=== PATIENT | female | born 1970 | race Hispanic/Latino ===

== ENCOUNTER 2018-07-02 12:53 | Day surgery (SDC) | payer BC, MEDICARE ==
[2016-04-10 12:03] VITALS: BMI 33.2
[2018-07-02 13:56] LABS: BASO # 0.06 K/mm3 (0.0-2.0); BASO % 0.6 % (0.0-3.0); EOS # 0.3 (0.0-0.7); EOS % 2.9 % (1.5-5.0); GRAN # 6.01 (1.4-6.5); GRAN % 55.5 % (50.0-68.0); HEMOGLOBIN 12.5 g/dL (12.0-16.0); LYMPH # 3.8 (1.2-3.4); LYMPH % 35.4 % (22.0-35.0); MEAN CELL VOLUME 57.8 fl (80.0-105.0); MEAN CORPUSCULAR HGB CONC 32.9 g/dl (31.0-37.0); MEAN PLATELET VOLUME 9.5 fl (7.0-11.0); MONO # 0.6 (0.1-0.6); MONO % 5.6 % (1.0-6.0); RBC 6.58 10^6/uL (3.5-6.1); WHITE BLOOD COUNT 10.8 10^3/uL (4.5-11.0)
[2018-07-02 14:02] LABS: INR 1.56; PARTIAL THROMBOPLASTIN TIME 34.5 Seconds (25.1-36.5); PROTHROMBIN TIME 18.1 SECONDS (9.4-12.5)
[2018-07-02 14:34] LABS: RED CELL DISTRIBUTION WIDTH 18.5 % (11.5-14.5)
[2018-07-02] MEDS ORDERED: Propofol 10 mg/ml Inj (20 ML) ONE (15:19)
[2018-07-02] MEDS ORDERED: Midazolam 2 MG/2 ML VIAL ONE (15:20)
[2018-07-02] MEDS ORDERED: Sodium Chloride 0.9% 1,000 ML IV SCH (16:30)
[2018-07-02 17:04] VITALS: O2SAT 97
[2018-07-02 17:36] VITALS: BP 124/66; PULSE 93; RESP 18; TEMP 98.1
== END 2018-07-02 18:09 | disposition home or self-care (01) ==
LOC: ENDO 12:53
PROVIDERS: ATTEND Internal Medicine Gastroenterology
DX: K31.9 Disease of stomach and duodenum, unspecified (principal); J39.2 Other diseases of pharynx; K29.50 Unspecified chronic gastritis without bleeding; K64.8 Other hemorrhoids; R10.13 Epigastric pain; R19.7 Diarrhea, unspecified
CPT/HCPCS: 36415; 43239; 45380; 85025; 85610; 85730; 88305; 88312; 88342; J2001; J2250; J2704; J7030; J7040